=== PATIENT | male | born 1955 | race Caucasian/White ===

== ENCOUNTER 2018-01-16 18:16 | Inpatient (IN) ==
[~2018-01-16 18:16] MED LIST: BUPIVACAINE 0.25% 50 ML VIAL ONE; HEPARIN 5,000 UNIT/1 ML VIAL ONE; LIDOCAINE 1% 50 ML VIAL ONE; THROMBIN TOPICAL (RECOMBINANT) 5,000 UNIT VIAL TOP ONE; ceFAZolin 1,000 MG VIAL ONE; ceFAZolin 1,000 MG in SYRINGE 1 EACH IV ONE
[2018-01-16 18:56] LABS: Basophils # 0.1 10*3/uL (0.0-0.2); Basophils % 0.8 % (0.0-0.8); Eosinophils # 0.2 10*3/uL (0.0-0.87); Eosinophils % 2.2 % (0.00-10.9); Hematocrit 31.1 VOL% (42.0-52.0); Hemoglobin 10.6 GM/DL (14.0-18.0); Immature Granulocytes % 0.5 %; Immature Granulocytes Absolute 0.04 #; Lymphocytes # 1.4 10*3/uL (1.4-4.0); Lymphocytes % 17.5 % (21.2-54.2); Mean Corpuscular HGB Conc 34.1 GM/DL (32-36); Mean Corpuscular Hemoglobin 32 PG (27-34); Mean Corpuscular Volume 94.2 FL (87-102); Mean Platelet Volume 11.4 FL (9.6-12.0); Monocytes # 0.8 10*3/uL (0.11-0.8); Monocytes % 9.8 % (1.7-12.7); Neutrophils # 5.5 10*3/uL (1.4-7.4); Neutrophils % 69.2 % (38.7-73.9); Platelet Count 207 T/CUMM (130-400); White Blood Count 7.9 T/CUMM (4-12)
[2018-01-16 19:05] LABS: INR 0.9; PT Patient Result 9.9 SECS
[2018-01-16] MEDS ORDERED: ONDANSETRON 4 MG/2 ML VIAL IV STA (19:20)
[2018-01-16] MEDS ORDERED: ONDANSETRON 4 MG/2 ML VIAL ONE (19:22)
[2018-01-16 19:27] LABS: Alanine Aminotransferase 31 U/L (16-61); Albumin 3.3 G/DL (3.4-5.0); Alkaline Phosphatase 335 U/L (45-117); Aspartate Amino Transferase 40 U/L (0-37); Blood Urea Nitrogen 45 MG/DL (7-18); Calcium 9.1 MG/DL (8.5-10.1); Glucose 127 MG/DL (74-106); Potassium 4.6 MMOL/L (3.5-5.1); Sodium 136 MMOL/L (136-145); Total Protein 6.8 G/DL (6.4-8.3); Troponin I Only 0.037 NG/ML (0.00-0.045)
[2018-01-16] MEDS ORDERED: PROMETHAZINE 25 MG/1 ML VIAL ONE (19:42)
[2018-01-16] MEDS ORDERED: PROMETHAZINE 25 MG/1 ML VIAL IM STA (19:48)
[2018-01-16] MEDS ORDERED: DEXTROSE 50% 25 GM/50 ML VIAL IV PRN (22:56)
[2018-01-16] MEDS ORDERED: ONDANSETRON 4 MG/2 ML VIAL IV PRN (22:56)
[2018-01-16] MEDS ORDERED: GLUCAGON 1 MG VIAL IM PRN (22:56)
[2018-01-17] MEDS: ENOXAPARIN 30 MG/0.3 ML SYRINGE SUBCUT SCH ×2 (00:02→21:07)
[2018-01-17] MEDS: INSULIN GLARGINE 100 UNIT/ML SUBCUT SCH ×2 (00:03→21:08)
[2018-01-17 01:06] LABS: Basophils # 0.1 10*3/uL (0.0-0.2); Basophils % 0.8 % (0.0-0.8); Eosinophils # 0.2 10*3/uL (0.0-0.87); Eosinophils % 3.5 % (0.00-10.9); Hematocrit 24.2 VOL% (42.0-52.0); Immature Granulocytes % 0.6 %; Immature Granulocytes Absolute 0.04 #; Lymphocytes # 1.2 10*3/uL (1.4-4.0); Mean Corpuscular HGB Conc 40.5 GM/DL (32-36); Mean Corpuscular Hemoglobin 40 PG (27-34); Mean Platelet Volume 11.1 FL (9.6-12.0); Monocytes # 0.8 10*3/uL (0.11-0.8); Monocytes % 12.2 % (1.7-12.7); Neutrophils % 63.9 % (38.7-73.9); Platelet Count 191 T/CUMM (130-400); Red Blood Count 2.47 MC/CUMM (3.8-5.5); Red Cell Distribution Width 16.3 % (9.3-17.3); White Blood Count 6.3 T/CUMM (4-12)
[2018-01-17 01:16] LABS: Hemoglobin 9.3 GM/DL (14.0-18.0)
[2018-01-17 01:39] LABS: Risk Ratio 4.55; Thyroid Stimulating Hormone 1.24 uIU/ml (0.358-3.74); VLDL CHOLESTEROL 30.6 MG/DL
[2018-01-17 03:27] LABS: Band Neutrophils 2 % (0-10); Eosinophils 2 % (0-10); Lymphocytes 17 % (20-55); Segmented Neutrophils 77 % (50-85); Total Cells Counted 100
[2018-01-17 03:28] LABS: Anisocytosis 1+; Hypochromasia 1+; Platelet Estimate Normal
[2018-01-17] MEDS ORDERED: SODIUM CHLORIDE 0.9% 1,000 ML IV PRN (05:49)
[2018-01-17] MEDS: LEVOTHYROXINE 100 MCG TABLET PO SCH (06:08)
[2018-01-17] MEDS: INSULIN REGULAR 100 UNIT/ML SUBCUT SCH ×8 (08:01→21:09)
[2018-01-17] MEDS ORDERED: NON-FORMULARY MEDICATION (Cinnamon Bark [Cinnamon] 1,000 MG) PO SCH (09:00)
[2018-01-17] MEDS: PANTOPRAZOLE 40 MG TABLET PO SCH (09:08)
[2018-01-17] MEDS: CLOPIDOGREL 75 MG TABLET PO SCH (09:08)
[2018-01-17] MEDS: ASPIRIN EC 81 MG TABLET PO SCH (09:08)
[2018-01-17] MEDS: ATORVASTATIN 20 MG TABLET PO SCH (09:08)
[2018-01-17] MEDS: CALCIUM ACETATE 667 MG CAPSULE PO SCH ×3 (09:08→17:03)
[2018-01-17] MEDS: DOCUSATE SODIUM 100 MG CAPSULE PO SCH ×2 (09:08→21:07)
[2018-01-17 10:57] LABS: Barbiturates Screen,Urine Negative (Negative); Benzodiazepines Screen,Urine Negative (Negative); Cannabinoid Screen,Urine Negative (Negative); Opiate Screen,Urine Negative (Negative); Phencyclidine Screen,Urine Negative (Negative)
[2018-01-17] MEDS ORDERED: HEPARIN 10,000 UNIT/10 ML VIAL IV SCH (14:00)
[2018-01-17 19:40] LABS: Hematocrit 27.8 VOL% (42.0-52.0); Hemoglobin 11.6 GM/DL (14.0-18.0)
[2018-01-17] MEDS: PREGABALIN 50 MG CAPSULE PO SCH (21:41)
[2018-01-17] MEDS ORDERED: MORPHINE 4 MG/1 ML VIAL IV PRN (22:44)
[2018-01-18 05:21] LABS: Basophils # 0.1 10*3/uL (0.0-0.2); Basophils % 1.3 % (0.0-0.8); Eosinophils # 0.3 10*3/uL (0.0-0.87); Eosinophils % 5.8 % (0.00-10.9); Hematocrit 27.5 VOL% (42.0-52.0); Hemoglobin 10.9 GM/DL (14.0-18.0); Immature Granulocytes % 0.4 %; Immature Granulocytes Absolute 0.02 #; Lymphocytes # 1.1 10*3/uL (1.4-4.0); Lymphocytes % 22.6 % (21.2-54.2); Mean Corpuscular HGB Conc 39.6 GM/DL (32-36); Mean Corpuscular Hemoglobin 38 PG (27-34); Mean Corpuscular Volume 94.8 FL (87-102); Mean Platelet Volume 11.4 FL (9.6-12.0); Monocytes # 0.8 10*3/uL (0.11-0.8); Monocytes % 17.5 % (1.7-12.7); Neutrophils # 2.5 10*3/uL (1.4-7.4); Neutrophils % 52.4 % (38.7-73.9); Platelet Count 154 T/CUMM (130-400); Red Cell Distribution Width 17.3 % (9.3-17.3); White Blood Count 4.7 T/CUMM (4-12)
[2018-01-18 05:45] LABS: Band Neutrophils 2 % (0-10); Eosinophils 5 % (0-10); Lymphocytes 31 % (20-55); Macrocytosis 2+; Platelet Estimate Normal; Segmented Neutrophils 57 % (50-85); Total Cells Counted 100
[2018-01-18 05:47] LABS: Calcium 9.2 MG/DL (8.5-10.1); Osmolality,Calculated 285.7 MOS/KG (273-304); Potassium 4.9 MMOL/L (3.5-5.1)
[2018-01-18] MEDS: INSULIN REGULAR 100 UNIT/ML SUBCUT SCH ×3 (07:38→12:22)
[2018-01-18] MEDS: ASPIRIN EC 81 MG TABLET PO SCH (08:20)
[2018-01-18] MEDS: PREGABALIN 50 MG CAPSULE PO SCH (08:20)
[2018-01-18] MEDS: CLOPIDOGREL 75 MG TABLET PO SCH (08:20)
[2018-01-18] MEDS: CALCIUM ACETATE 667 MG CAPSULE PO SCH ×2 (08:20→12:21)
[2018-01-18] MEDS: DOCUSATE SODIUM 100 MG CAPSULE PO SCH (08:20)
[2018-01-18] MEDS: LEVOTHYROXINE 100 MCG TABLET PO SCH (08:20)
[2018-01-18] MEDS: PANTOPRAZOLE 40 MG TABLET PO SCH (08:20)
[2018-01-18] MEDS: ATORVASTATIN 20 MG TABLET PO SCH (08:20)
[2018-01-18 12:28] VITALS: BP 153/77
== END 2018-01-18 14:23 | disposition home or self-care (01) | DRG 981 ==
LOC: EDBD → EDUNIT# → N.ED 18:16 → N.EDINP 21:53 → N.5E 22:25
PROVIDERS: ADMIT Family Medicine; ATTEND Family Medicine

== ENCOUNTER 2018-11-26 16:55 | Inpatient (IN) ==
[2018-11-26] MEDS ORDERED: cefTRIAXone 1,000 MG in SODIUM CHLORIDE 0.9% 100 ML IV STA (17:23)
[2018-11-26] MEDS ORDERED: ACETAMINOPHEN 500 MG TABLET PO STA (17:23)
[2018-11-26] MEDS ORDERED: ALBUTEROL/IPRATROPIUM 3 ML NEB RESP TX STA (17:23)
[2018-11-26 17:47] LABS: ABG Base Excess 2.4 MMOL/L (-2.5-2.5); ABG HCO3 26.4 MMOL/L (20-26); ABG Oxygen Saturation 92.5 % (95-100); ABG PCO2 41.4 MM HG (35-48); ABG PH 7.423 (7.35-7.45); ABG PO2 67.6 MM HG (80-95); ABG TCO2 23.4 MMOL/L (23-27)
[2018-11-26 18:51] LABS: INR 0.9
[2018-11-26 19:07] LABS: Alanine Aminotransferase 28 U/L (16-61); Albumin 3.8 G/DL (3.4-5.0); Alkaline Phosphatase 203 U/L (45-117); Amylase 33 U/L (25-115); Aspartate Amino Transferase 25 U/L (0-37); Blood Urea Nitrogen 28 MG/DL (7-18); Calcium 9.8 MG/DL (8.5-10.1); Glucose 194 MG/DL (74-106); Osmolality,Calculated 270.8 MOS/KG (273-304); Potassium 5.1 MMOL/L (3.5-5.1); Sodium 130 MMOL/L (136-145); Total Protein 8.6 G/DL (6.4-8.3); Troponin I 0.031 NG/ML (0.00-0.045)
[2018-11-26 20:10] LABS: Basophils % 0.3 % (0.0-0.8); Hematocrit 38.4 VOL% (42.0-52.0); Hemoglobin 12.4 GM/DL (14.0-18.0); Immature Granulocytes % 0.6 %; Immature Granulocytes Absolute 0.06 #; Lymphocytes # 0.5 10*3/uL (1.4-4.0); Lymphocytes % 5.4 % (21.2-54.2); Mean Corpuscular HGB Conc 32.3 GM/DL (32-36); Mean Corpuscular Hemoglobin 30 PG (27-34); Mean Platelet Volume 12.1 FL (9.6-12.0); Monocytes % 10.5 % (1.7-12.7); Neutrophils # 8.3 10*3/uL (1.4-7.4); Neutrophils % 83.2 % (38.7-73.9); Platelet Count 128 T/CUMM (130-400); Red Blood Count 4.13 MC/CUMM (3.8-5.5); Red Cell Distribution Width 13.9 % (9.3-17.3); White Blood Count 9.9 T/CUMM (4-12)
[2018-11-26] MEDS ORDERED: GLUCAGON 1 MG VIAL IM PRN (21:04)
[2018-11-26] MEDS ORDERED: ONDANSETRON 4 MG/2 ML VIAL IV PRN (21:04)
[2018-11-26] MEDS ORDERED: ALBUTEROL 2.5 MG/3 ML NEB RESP TX PRN (21:04)
[2018-11-26] MEDS ORDERED: DEXTROSE 50% 25 GM/50 ML SYRINGE IV PRN (21:04)
[2018-11-26] MEDS ORDERED: ENOXAPARIN 30 MG/0.3 ML SYRINGE SUBCUT SCH (21:30)
[2018-11-26] MEDS: levETIRAcetam 500 MG TABLET PO SCH (23:49)
[2018-11-26] MEDS: INSULIN REGULAR 100 UNIT/ML SUBCUT SCH (23:49)
[2018-11-26] MEDS: PRAMIPEXOLE 0.25 MG TABLET PO SCH (23:50)
[2018-11-26] MEDS: AZITHROMYCIN INJ 500 MG in SODIUM CHLORIDE 0.9% 250 ML IV SCH (23:50)
[2018-11-26] MEDS: OSELTAMIVIR 30 MG CAPSULE PO SCH (23:51)
[2018-11-26] MEDS: PREGABALIN 75 MG CAPSULE PO SCH (23:51)
[2018-11-26] MEDS: DOCUSATE SODIUM 100 MG CAPSULE PO SCH (23:51)
[2018-11-27] MEDS: ALBUTEROL/IPRATROPIUM 3 ML NEB RESP TX SCH ×4 (00:02→20:00)
[2018-11-27] MEDS: LEVOTHYROXINE 100 MCG TABLET PO SCH (05:30)
[2018-11-27 06:40] LABS: Albumin 3.3 G/DL (3.4-5.0); Bilirubin,Total 0.6 MG/DL (0.2-1.0); Calcium 9.2 MG/DL (8.5-10.1); Osmolality,Calculated 278.7 MOS/KG (273-304); Potassium 4.5 MMOL/L (3.5-5.1); Total Protein 7.7 G/DL (6.4-8.3)
[2018-11-27 07:08] LABS: Basophils # 0.1 10*3/uL (0.0-0.2); Basophils % 0.4 % (0.0-0.8); Hematocrit 38.4 VOL% (42.0-52.0); Hemoglobin 12.1 GM/DL (14.0-18.0); Immature Granulocytes % 0.4 %; Immature Granulocytes Absolute 0.06 #; Lymphocytes # 0.8 10*3/uL (1.4-4.0); Lymphocytes % 5.6 % (21.2-54.2); Mean Corpuscular HGB Conc 31.5 GM/DL (32-36); Mean Corpuscular Hemoglobin 31 PG (27-34); Mean Corpuscular Volume 96.7 FL (87-102); Mean Platelet Volume 11.9 FL (9.6-12.0); Monocytes # 1.4 10*3/uL (0.11-0.8); Monocytes % 10.1 % (1.7-12.7); Neutrophils # 11.6 10*3/uL (1.4-7.4); Neutrophils % 83.5 % (38.7-73.9); Platelet Count 57 T/CUMM (130-400); Red Blood Count 3.97 MC/CUMM (3.8-5.5)
[2018-11-27 07:10] LABS: White Blood Count 13.9 T/CUMM (4-12)
[2018-11-27] MEDS: PREGABALIN 75 MG CAPSULE PO SCH ×3 (09:23→21:10)
[2018-11-27] MEDS: SERTRALINE 25 MG TABLET PO SCH (09:23)
[2018-11-27] MEDS: PANTOPRAZOLE 40 MG TABLET PO SCH (09:23)
[2018-11-27] MEDS: OSELTAMIVIR 30 MG CAPSULE PO SCH (09:23)
[2018-11-27] MEDS: amLODIPine 5 MG TABLET PO SCH (09:23)
[2018-11-27] MEDS: CLOPIDOGREL 75 MG TABLET PO SCH (09:23)
[2018-11-27] MEDS: SEVELAMER CARBONATE 800 MG TABLET PO SCH ×3 (09:23→17:32)
[2018-11-27] MEDS: levETIRAcetam 500 MG TABLET PO SCH ×2 (09:23→21:09)
[2018-11-27] MEDS: INSULIN REGULAR 100 UNIT/ML SUBCUT SCH ×4 (09:23→21:11)
[2018-11-27] MEDS: ASPIRIN EC 81 MG TABLET PO SCH (09:23)
[2018-11-27] MEDS: ACETAMINOPHEN 325 MG TABLET PO PRN (11:00)
[2018-11-27] MEDS ORDERED: HEPARIN 10,000 UNIT/10 ML VIAL IV PRN (12:24)
[2018-11-27 14:07] LABS: Albumin 3.3 G/DL (3.4-5.0); Bilirubin,Direct 0.15 MG/DL (0.0-0.20); Bilirubin,Indirect 0.3 MG/DL (0.0-1.0); Bilirubin,Total 0.4 MG/DL (0.2-1.0); Total Protein 7.8 G/DL (6.4-8.3)
[2018-11-27] MEDS: cefTRIAXone 1,000 MG in SODIUM CHLORIDE 0.9% 100 ML IV SCH (21:09)
[2018-11-27] MEDS: PRAMIPEXOLE 0.25 MG TABLET PO SCH (21:10)
[2018-11-27] MEDS: DOCUSATE SODIUM 100 MG CAPSULE PO SCH (21:11)
[2018-11-27] MEDS: HEPARIN 5,000 UNIT/1 ML VIAL SUBCUT SCH (21:11)
[2018-11-27] MEDS: AZITHROMYCIN INJ 500 MG in SODIUM CHLORIDE 0.9% 250 ML IV SCH (21:19)
[2018-11-28] MEDS: ALBUTEROL/IPRATROPIUM 3 ML NEB RESP TX SCH ×4 (00:54→19:33)
[2018-11-28] MEDS: LEVOTHYROXINE 100 MCG TABLET PO SCH (05:35)
[2018-11-28] MEDS: INSULIN REGULAR 100 UNIT/ML SUBCUT SCH ×4 (09:07→23:09)
[2018-11-28] MEDS: SEVELAMER CARBONATE 800 MG TABLET PO SCH ×3 (09:07→17:15)
[2018-11-28] MEDS: CLOPIDOGREL 75 MG TABLET PO SCH (09:08)
[2018-11-28] MEDS: AZITHROMYCIN 250 MG TABLET PO SCH (09:08)
[2018-11-28] MEDS: SERTRALINE 25 MG TABLET PO SCH (09:08)
[2018-11-28] MEDS: amLODIPine 5 MG TABLET PO SCH (09:08)
[2018-11-28] MEDS: ASPIRIN EC 81 MG TABLET PO SCH (09:08)
[2018-11-28] MEDS: PREGABALIN 75 MG CAPSULE PO SCH ×3 (09:08→22:06)
[2018-11-28] MEDS: PANTOPRAZOLE 40 MG TABLET PO SCH (09:08)
[2018-11-28] MEDS: OSELTAMIVIR 30 MG CAPSULE PO SCH (09:08)
[2018-11-28] MEDS: levETIRAcetam 500 MG TABLET PO SCH ×2 (09:08→22:06)
[2018-11-28] MEDS: HEPARIN 5,000 UNIT/1 ML VIAL SUBCUT SCH ×2 (09:12→23:09)
[2018-11-28] MEDS: DOCUSATE SODIUM 100 MG CAPSULE PO SCH (22:06)
[2018-11-28] MEDS: PRAMIPEXOLE 0.25 MG TABLET PO SCH (22:09)
[2018-11-28] MEDS: cefTRIAXone 1,000 MG in SODIUM CHLORIDE 0.9% 100 ML IV SCH (23:08)
[2018-11-29] MEDS: ALBUTEROL/IPRATROPIUM 3 ML NEB RESP TX SCH ×4 (01:33→20:10)
[2018-11-29] MEDS: ACETAMINOPHEN 325 MG TABLET PO PRN (05:05)
[2018-11-29] MEDS: LEVOTHYROXINE 100 MCG TABLET PO SCH (06:17)
[2018-11-29 07:13] LABS: Basophils % 0.7 % (0.0-0.8); Eosinophils # 0.1 10*3/uL (0.0-0.87); Eosinophils % 1.8 % (0.00-10.9); Hematocrit 33.7 VOL% (42.0-52.0); Immature Granulocytes % 0.5 %; Immature Granulocytes Absolute 0.03 #; Lymphocytes % 17.3 % (21.2-54.2); Mean Corpuscular Hemoglobin 31 PG (27-34); Mean Corpuscular Volume 96.3 FL (87-102); Mean Platelet Volume 11.7 FL (9.6-12.0); Monocytes # 0.8 10*3/uL (0.11-0.8); Monocytes % 13.3 % (1.7-12.7); Neutrophils % 66.4 % (38.7-73.9); Platelet Count 129 T/CUMM (130-400); Red Cell Distribution Width 13.9 % (9.3-17.3)
[2018-11-29 07:14] LABS: Hemoglobin 10.8 GM/DL (14.0-18.0)
[2018-11-29 07:24] LABS: Bilirubin,Total 1.5 MG/DL (0.2-1.0); Calcium 9.2 MG/DL (8.5-10.1); Osmolality,Calculated 278.5 MOS/KG (273-304); Potassium 4.3 MMOL/L (3.5-5.1); Total Protein 7.5 G/DL (6.4-8.3)
[2018-11-29 07:25] LABS: Platelet Estimate Adequate
[2018-11-29 07:26] LABS: Anisocytosis Slight
[2018-11-29] MEDS: INSULIN REGULAR 100 UNIT/ML SUBCUT SCH ×4 (09:52→21:17)
[2018-11-29] MEDS: SEVELAMER CARBONATE 800 MG TABLET PO SCH ×3 (09:52→17:14)
[2018-11-29] MEDS: HEPARIN 5,000 UNIT/1 ML VIAL SUBCUT SCH ×2 (10:55→21:18)
[2018-11-29] MEDS: PREGABALIN 75 MG CAPSULE PO SCH ×3 (10:55→21:16)
[2018-11-29] MEDS: levETIRAcetam 500 MG TABLET PO SCH ×2 (10:56→21:17)
[2018-11-29] MEDS: amLODIPine 5 MG TABLET PO SCH (14:16)
[2018-11-29] MEDS: CLOPIDOGREL 75 MG TABLET PO SCH (14:16)
[2018-11-29] MEDS: ASPIRIN EC 81 MG TABLET PO SCH (14:16)
[2018-11-29] MEDS: AZITHROMYCIN 250 MG TABLET PO SCH (14:16)
[2018-11-29] MEDS: SERTRALINE 25 MG TABLET PO SCH (14:22)
[2018-11-29] MEDS: OSELTAMIVIR 30 MG CAPSULE PO SCH (14:22)
[2018-11-29] MEDS: PANTOPRAZOLE 40 MG TABLET PO SCH (14:22)
[2018-11-29] MEDS: DOCUSATE SODIUM 100 MG CAPSULE PO SCH (21:15)
[2018-11-29] MEDS: cefTRIAXone 1,000 MG in SODIUM CHLORIDE 0.9% 100 ML IV SCH (21:15)
[2018-11-29] MEDS: PRAMIPEXOLE 0.25 MG TABLET PO SCH (21:16)
[2018-11-30] MEDS: ALBUTEROL/IPRATROPIUM 3 ML NEB RESP TX SCH ×3 (01:35→13:40)
[2018-11-30] MEDS: LEVOTHYROXINE 100 MCG TABLET PO SCH (06:00)
[2018-11-30 06:22] LABS: Albumin 3.2 G/DL (3.4-5.0); Bilirubin,Total 0.6 MG/DL (0.2-1.0); Calcium 9.7 MG/DL (8.5-10.1); Osmolality,Calculated 278.5 MOS/KG (273-304); Potassium 4.4 MMOL/L (3.5-5.1)
[2018-11-30 07:03] LABS: Basophils % 0.7 % (0.0-0.8); Eosinophils # 0.2 10*3/uL (0.0-0.87); Eosinophils % 3.7 % (0.00-10.9); Hemoglobin 11.8 GM/DL (14.0-18.0); Immature Granulocytes % 0.4 %; Immature Granulocytes Absolute 0.02 #; Lymphocytes % 17.7 % (21.2-54.2); Mean Corpuscular HGB Conc 31.1 GM/DL (32-36); Mean Corpuscular Hemoglobin 30 PG (27-34); Mean Corpuscular Volume 95.5 FL (87-102); Mean Platelet Volume 11.4 FL (9.6-12.0); Monocytes # 0.6 10*3/uL (0.11-0.8); Monocytes % 11.7 % (1.7-12.7); Neutrophils # 3.6 10*3/uL (1.4-7.4); Neutrophils % 65.8 % (38.7-73.9); Platelet Count 145 T/CUMM (130-400); Red Blood Count 3.98 MC/CUMM (3.8-5.5); Red Cell Distribution Width 13.2 % (9.3-17.3); White Blood Count 5.5 T/CUMM (4-12)
[2018-11-30] MEDS: SEVELAMER CARBONATE 800 MG TABLET PO SCH ×3 (10:36→14:48)
[2018-11-30] MEDS: INSULIN REGULAR 100 UNIT/ML SUBCUT SCH ×2 (10:37→10:53)
[2018-11-30] MEDS: ASPIRIN EC 81 MG TABLET PO SCH (10:46)
[2018-11-30] MEDS: AZITHROMYCIN 250 MG TABLET PO SCH (10:46)
[2018-11-30] MEDS: levETIRAcetam 500 MG TABLET PO SCH (10:46)
[2018-11-30] MEDS: amLODIPine 5 MG TABLET PO SCH (10:47)
[2018-11-30] MEDS: SERTRALINE 25 MG TABLET PO SCH (10:47)
[2018-11-30] MEDS: OSELTAMIVIR 30 MG CAPSULE PO SCH (10:48)
[2018-11-30] MEDS: PREGABALIN 75 MG CAPSULE PO SCH (10:48)
[2018-11-30] MEDS: HEPARIN 5,000 UNIT/1 ML VIAL SUBCUT SCH (10:48)
[2018-11-30] MEDS: PANTOPRAZOLE 40 MG TABLET PO SCH (10:48)
[2018-11-30] MEDS: CLOPIDOGREL 75 MG TABLET PO SCH (10:48)
[2018-11-30 14:47] VITALS: BP 117/72
== END 2018-11-30 14:34 | disposition home health service (06) | DRG 193 ==
LOC: EDBD → EDUNIT# → N.ED 16:55 → N.EDINP 21:04 → N.5E 22:19
PROVIDERS: ADMIT Hospitalist; ATTEND Hospitalist